=== PATIENT | female | born 1980 | race Caucasian/White ===

== ENCOUNTER → 2021-11-29 | Outpatient (CLI) | payer BC ==
--- NOTE | 2021-11-30 12:21 | CARD ---
MR#: [id number] Date of Study: 11/29/2021 Ordering Physician: TO DANIEL, Referring Physician: TO DANIEL, Abdias: Vero Boyd [facility] [place] APPROVED REPORT INDICATION Dyspnea Chest Pain Reason : Patient complained of pain PROCEDURE The patient underwent an Exercise Stress Test using the Servando Protocol. Blood pressure, heart rate, a nd EKG were monitored. An Echocardiogram was performed by reprographics technician in four stages in quad fashion. At peak stress four se lected images were obtained and placed side by side with resting images for comparison. STRESS ECHO FINDINGS The resting Echocardiogram showed normal left ventricular systolic contractility with an estimated Ej ection Fraction of about 55 %. The Resting Echocardiogram showed normal augmentation of myocardial wall segments using a 16 segment model. The Stress Echocardiogram showed normal augmentation of myocardial wall segments using a 16 segment m silverio. The Stress Echocardiogram left ventricular systolic contractility has an estimated Ejection Fraction of about 70%. INTERPRETATION Stress EKG Conclusion: Negative for ischemia STRESS ECG Stress EKG shows no significant changes. Preliminary Notification Critical Value: No <Conclusion> No evidence of stress-induced EKG changes with excellent exercise capacity at 12.8 METS Normal wall motion at rest with an ejection fraction of 55% Normal wall motion with stress with an ejection fraction greater than 70% Low risk study overall Signed by : Jerry Casiano, Electronically Approved : 11/29/2021 17:30:36
== END ==
LOC: ECHO 13:35
PROVIDERS: ATTEND Internal Medicine Cardiovascular Disease
DX: R07.9 Chest pain, unspecified (principal); R06.00 Dyspnea, unspecified
CPT/HCPCS: 93017; 93350